=== PATIENT | female | born 1990 ===

== ENCOUNTER 2017-02-23 12:26 | Emergency (ER) | payer MEDICAID ==
[2017-02-23 12:38] VITALS: BP 115/73; PULSE 79; RESP 18; TEMP 97.7; O2SAT 100
--- NOTE | 2017-02-23 13:05 | ED PDOC ---
HPI: Allergic Reaction Time Seen by Provider: 02/23/17 12:57 Chief Complaint (Nursing): Allergic Reaction Chief Complaint (Provider): Allergic Reaction History Per: Patient History/Exam Limitations: no limitations Onset/Duration Of Symptoms: Hrs Current Symptoms Are (Timing): Still Present Additional Complaint(s): 12:57 Micaela Dorantes is a 26 year old female that presents to the ED with a chief complaint of an allergic reaction. Patient reports that she had three molars extracted three days ago, and was given a prescriptions for Tylenol, Amoxicillin, and Codeine, the latter of which she had never taken before. Patient states that after taking these medications last night, she began to experience redness, itching, and swelling to face, along with associated difficulty breathing. She denies any swelling to hands or feet, shortness of breath, or vomiting. Past Medical History Reviewed: Historical Data, Nursing Documentation, Vital Signs Vital Signs: Last Vital Signs Temp 97.7 F 02/23/17 12:35 Pulse 79 02/23/17 12:35 Resp 18 02/23/17 12:35 BP 115/73 02/23/17 12:35 Pulse Ox 100 02/23/17 12:35 - Family History Family History: States: Unknown Family Hx - Home Medications Home Medications: Ambulatory Orders Medication Instructions Recorded Amoxicillin [Amoxil 250 mg Cap] 1 tab PO TID 02/23/17 Cetirizine HCl [Zyrtec] 10 mg PO DAILY #30 capsule 02/23/17 Famotidine [Pepcid] 20 mg PO BID #16 tab 02/23/17 Ketorolac Tromethamine [Toradol] 10 mg PO TID #20 cap 02/23/17 predniSONE [predniSONE Tab] 20 mg PO BID #8 tab 02/23/17 - Allergies Allergies/Adverse Reactions: Allergies Allergy/AdvReac Type Severity Reaction Status Date / Time No Known Allergies Allergy Verified 02/23/17 12:37 Review of Systems ENT: Positive for: Other (swelling of face) Respiratory: Positive for: Other (difficulty breathing). Negative for: Shortness of Breath Gastrointestinal: Negative for: Vomiting Musculoskeletal: Negative for: Hand Pain (no hand swelling), Foot Pain (no foot swelling) Skin: Positive for: Other (redness and itching to face) Physical Exam - Reviewed Nursing Documentation Reviewed: Yes Vital Signs Reviewed: Yes - Physical Exam Appears: Positive for: Non-toxic, No Acute Distress Head Exam: Positive for: ATRAUMATIC, NORMOCEPHALIC Skin: Positive for: Rash (rash to chest, no urticaria noted). Negative for: Normal Color (erythema to face) ENT: Positive for: Tonsillar Swelling, Other (mild uvular swelling). Negative for: Normal ENT Inspection Cardiovascular/Chest: Positive for: Regular Rate, Rhythm. Negative for: Murmur Respiratory: Positive for: Normal Breath Sounds. Negative for: Respiratory Distress Neurologic/Psych: Positive for: Alert, Oriented - ECG O2 Sat by Pulse Oximetry: 100 (RA) Pulse Ox Interpretation: Normal - Progress Re-evaluation Time: 14:53 Condition: Improved Disposition - Clinical Impression Clinical Impression: Allergic reaction - Patient ED Disposition Is Patient to be Admitted: No Counseled Patient/Family Regarding: Diagnosis, Need For Followup, Rx Given - Disposition Referrals: [facility] [Outside] [facility] [Outside] Disposition: Routine/Home Disposition Time: 14:51 Condition: IMPROVED Prescriptions: Cetirizine HCl [Zyrtec] 10 mg PO DAILY #30 capsule Famotidine [Pepcid] 20 mg PO BID #16 tab Ketorolac Tromethamine [Toradol] 10 mg PO TID #20 cap predniSONE [predniSONE Tab] 20 mg PO BID #8 tab Instructions: Allergies (ED) Print Language: PORTUGUESE Medical Decision Making - Medication Orders Current Medication Orders: Diphenhydramine HCl (Benadryl) 25 mg IVP STAT STA Stop: 02/23/17 13:09 Famotidine (Pepcid) 20 mg IVP STAT STA Stop: 02/23/17 13:09 Sodium Chloride (Sodium Chloride 0.9%) 1,000 mls @ 1,000 mls/hr IV .Q1H STA Stop: 02/23/17 14:07 02/23/17 14:48 pt feels much improved in ED no longer with SOB or difficulty with breathing. no longer with redness to tani and still with mild swelling to cheek area, overall much improed in ED will d.c on prednisone 40mg daily x 4d and pepcid daily ztrec daily and concerns for allergic reaction to the codeine-advised not to take codeine anymore or narcotics. will give torodol PO for pain. advised if worsened to return to ED. Medical Decision Making Medical Decision Makin:08 Impression: Patient with Difficulty Breathing and Tonsilar Swelling Plan: * Bendryl 25 mg IV * Pepcid 20 mg IV * Sodium Chloride 1000 mL at 1000 mLs/hr * Reevaluation Scribe Attestation: Documented by Ashly Whitehead, acting as a scribe for Corinna Allison PA-C. Provider Scribe Attestation: All medical record entries made by the Scribe were at my direction and personally dictated by me. I have reviewed the chart and agree that the record accurately reflects my personal performance of the history, physical exam, medical decision making, and the department course for this patient. I have also personally directed, reviewed, and agree with the discharge instructions and disposition.
[2017-02-23] MEDS ORDERED: Sodium Chloride 0.9% 1,000 ML IV STA (13:08)
[2017-02-23] MEDS ORDERED: DiphenhydrAMINE 50 mg/ml Inj IVP STA (13:08)
== END 2017-02-23 14:59 | disposition home or self-care (01) ==
LOC: H.ER 12:26
DX: T78.40XA Allergy, unspecified, initial encounter (principal)